=== PATIENT | male | born 1985 | race Two or more races ===

== ENCOUNTER 2023-04-08 22:23 | Emergency (ER) | payer OTHER ==
[~2023-04-08] VITALS: Ht 182.9 cm; Wt 90.7 kg
[2023-04-09] MEDS ORDERED: APIXABAN 5 MG TABLET ONE (00:04)
[2023-04-09] MEDS ORDERED: IBUPROFEN 400 MG TABLET ONE (00:04)
[2023-04-09] MEDS: APIXABAN 5 MG TABLET PO SCH (00:11)
[2023-04-09] MEDS: IBUPROFEN 400 MG TABLET PO ONE (00:11)
[2023-04-09 00:43] VITALS: BP 145/106; TEMP 98.6; O2SAT 99
== END 2023-04-09 00:44 ==
LOC: ER 22:30
DX: Z02.9 Encounter for administrative examinations, unspecified (principal); S82.831D Other fracture of upper and lower end of right fibula, subsequent encounter for closed fracture with routine healing; Z60.2 Problems related to living alone; Z86.718 Personal history of other venous thrombosis and embolism; V09.9XXD Pedestrian injured in unspecified transport accident, subsequent encounter
CPT/HCPCS: 73590-TC; 73610-TC